=== PATIENT | female | born 1955 | race Caucasian/White ===

== ENCOUNTER 2018-10-01 17:08 | Inpatient (IN) | payer MEDICAID ==
[~2018-10-01] VITALS: Ht 154.9 cm; Wt 65.8 kg
[~2018-10-01 17:08] MED LIST: AMLO2.5T2; GLYB5TAB4; HYDR25TA; PANT40TA4; SERT25TA74 PO; VALS320T2
[2018-10-01] MEDS ORDERED: SODIUM CHLORIDE 0.9% 1,000 ML IV ONE (19:32)
[2018-10-01] MEDS ORDERED: ONDANSETRON HCL 4MG/2ML INJ IV ONE (19:45)
[2018-10-01 20:38] LABS: BASOPHILS % 0.2 % (0.0-2.0); EOSINOPHILS % 0.4 % (0.0-5.0); HEMOGLOBIN. 14.1 g/dL (12.0-16.0); LYMPHOCYTES % 16.2 % (20.0-50.0); MEAN CORPUSCULAR HEMOGLOBIN 29.6 pg (28.0-32.0); MEAN PLATELET VOLUME 9.2 fl (7.4-10.4); MONOCYTES % 4.4 % (2.0-8.0); NEUTROPHILS % 78.8 % (40.0-76.0); PLATELET 287 x1000/uL (130-400); RED BLOOD CELL COUNT 4.77 mill/uL (4.2-5.4); RED CELL DISTRIBUTION WIDTH 13.2 % (11.6-14.6)
[2018-10-01 20:43] LABS: INR 1.1; PARTIAL THROMBOPLASTIN TIME 23.4 sec (23.4-31.0); PROTHROMBIN TIME 10.8 sec (9.1-11.1)
[2018-10-01 20:44] LABS: CHLORIDE 105 mEq/L (98-107)
[2018-10-01 20:52] LABS: PHOSPHORUS 3.9 mg/dL (2.5-4.9)
[2018-10-01] MEDS ORDERED: MAGNESIUM 1 G PREMIX 100 ML IV ONE (21:15)
[2018-10-01 21:54] LABS: CLARITY URINE CLEAR (CLEAR); COLOR URINE DARK YELLOW (YELLOW); KETONES URINE TRACE (NEGATIVE); LEUKOCYTE ESTERASE URINE NEGATIVE (NEGATIVE); NITRITE URINE NEGATIVE (NEGATIVE); OCCULT BLOOD URINE NEGATIVE (NEGATIVE); PH URINE 5.5 (4.5-8.0); PROTEIN URINE 1+ (NEGATIVE); UROBILINOGEN URINE 0.2 E.U./dL (0.2-1.0)
[2018-10-02] VITALS: BP 133/61
[2018-10-02] MEDS ORDERED: DEXTROSE 50% WATER 50ML SYRINGE IV PRN (02:45)
[2018-10-02 04:00] VITALS: BP 115/79
[2018-10-02] MEDS: CEFTRIAXONE 1 G PREMIX 50 ML IV SCH (04:22)
[2018-10-02] MEDS: INSULIN LISPRO 100 UNITS/ML SUBCUT SCH ×4 (06:59→20:31)
[2018-10-02] MEDS: BLOOD SUGAR DIAGNOSTIC STRIP TEST SCH ×4 (07:31→20:31)
[2018-10-02] MEDS: PANTOPRAZOLE 40MG DR TABLET PO SCH (07:34)
[2018-10-02 08:00] VITALS: BP 130/64
[2018-10-02] MEDS ORDERED: LOSA1TAB34 PO (08:06)
[2018-10-02] MEDS: AMLODIPINE 2.5MG TABLET PO SCH (08:27)
[2018-10-02] MEDS: METFORMIN HCL 500MG TABLET PO SCH ×2 (08:27→17:34)
[2018-10-02] MEDS: ASPIRIN 325MG EC TABLET PO SCH (08:27)
[2018-10-02 10:00] LABS: HEMATOCRIT 40.2 % (36.0-48.0); MEAN CORPUSCULAR HEMOGLOBIN 30.1 pg (28.0-32.0); MEAN CORPUSCULAR VOLUME 86.8 fL (81.0-99.0); PLATELET 261 x1000/uL (130-400); RED BLOOD CELL COUNT 4.64 mill/uL (4.2-5.4); RED CELL DISTRIBUTION WIDTH 13.4 % (11.6-14.6)
[2018-10-02] MEDS ORDERED: OMEP40CA34 PO (10:35)
[2018-10-02] MEDS ORDERED: DICL75TA5 PO (10:35)
[2018-10-02] MEDS ORDERED: SITA100T11 PO (10:35)
[2018-10-02] MEDS ORDERED: RANI150C12 PO (10:35)
[2018-10-02] MEDS ORDERED: HYDR50TA55 PO (10:37)
[2018-10-02] MEDS ORDERED: AMLO5TAB88 PO (10:37)
[2018-10-02] MEDS ORDERED: NAPR500T7 PO (10:38)
[2018-10-02] MEDS ORDERED: METF-414 PO (10:38)
[2018-10-02 12:00] VITALS: BP 131/74
[2018-10-02] MEDS ORDERED: ONDANSETRON HCL 4MG/2ML INJ IV PRN (14:15)
[2018-10-02 16:00] VITALS: BP_SYST 128; BP_SYST 135; BP_SYST 141; BP_DIAS 64; BP_DIAS 67; BP_DIAS 69
[2018-10-02 16:29] LABS: CHLORIDE 103 mEq/L (98-107)
[2018-10-02 16:41] LABS: LDL CHOLESTEROL 95 mg/dL (5-100)
[2018-10-02 16:42] LABS: HDL CHOLESTEROL 60 mg/dL (40-59)
[2018-10-02 20:00] VITALS: BP 152/72
[2018-10-03] VITALS: BP 108/64
[2018-10-03 04:00] VITALS: BP 111/66
[2018-10-03] MEDS: CEFTRIAXONE 1 G PREMIX 50 ML IV SCH (04:52)
[2018-10-03] MEDS: BLOOD SUGAR DIAGNOSTIC STRIP TEST SCH ×2 (06:13→12:10)
[2018-10-03] MEDS: INSULIN LISPRO 100 UNITS/ML SUBCUT SCH ×2 (06:17→13:26)
[2018-10-03] MEDS: PANTOPRAZOLE 40MG DR TABLET PO SCH (06:24)
[2018-10-03 06:32] LABS: CHLORIDE 106 mEq/L (98-107)
[2018-10-03 06:38] LABS: BASOPHILS % 0.2 % (0.0-2.0); HEMATOCRIT. 38.6 % (36.0-48.0); HEMOGLOBIN. 13.4 g/dL (12.0-16.0); MEAN CORPUSCULAR VOLUME 86.2 fL (81.0-99.0); MONOCYTES % 5.1 % (2.0-8.0); NEUTROPHILS % 69.7 % (40.0-76.0); PLATELET 277 x1000/uL (130-400); RED BLOOD CELL COUNT 4.48 mill/uL (4.2-5.4); RED CELL DISTRIBUTION WIDTH 13.5 % (11.6-14.6)
[2018-10-03 08:00] VITALS: BP 139/66
[2018-10-03] MEDS: ASPIRIN 325MG EC TABLET PO SCH (09:21)
[2018-10-03] MEDS: METFORMIN HCL 500MG TABLET PO SCH (09:21)
[2018-10-03] MEDS: AMLODIPINE 2.5MG TABLET PO SCH (09:21)
[2018-10-03 12:48] VITALS: BP 148/70
[2018-10-03 16:41] VITALS: BP 120/72
== END 2018-10-03 18:10 | disposition home or self-care (01) | DRG 48 ==
LOC: ER 17:08 → 8WST 20:58 → EDBEDREQTM 21:03 → EDBEDREQ 21:03 → ENRESERV 23:03
PROVIDERS: ADMIT Internal Medicine; ATTEND Internal Medicine
DX: G90.8 Other disorders of autonomic nervous system (principal); E83.42 Hypomagnesemia; D72.829 Elevated white blood cell count, unspecified; E11.9 Type 2 diabetes mellitus without complications; I10 Essential (primary) hypertension; E86.0 Dehydration; R11.2 Nausea with vomiting, unspecified; Z79.899 Other long term (current) drug therapy
CPT/HCPCS: 36415; 70551; 71045; 80048; 80061; 82962; 83036; 83735; 84100; 84145; 84439; 84443; 84484; 85027; 93005; 93880; 96361; 96365; 97162; 99285; J0696; J1815; J2405; J3475; J7030

== ENCOUNTER 2020-03-22 15:57 | Inpatient (IN) | payer MEDICARE, MEDICAID ==
[~2020-03-22] VITALS: Ht 160 cm; Wt 68.9 kg
[~2020-03-22 15:57] MED LIST changes: -AMLO2.5T2; +AMLO5TAB88 PO; -HYDR25TA; +HYDR50TA55 PO; +LOSA1TAB34 PO; +METF-414 PO; +OMEP40CA12 PO; +SITA100T11 PO; -VALS320T2
[2020-03-22] MEDS ORDERED: KETOROLAC 15MG/ML VIAL IV ONE (16:30)
[2020-03-22] MEDS ORDERED: SODIUM CHLORIDE 0.9% 1000ML BAG (SEPSIS BOLUS) IV ONE (16:30)
[2020-03-22 17:01] LABS: BASOPHILS % 0.4 % (0.0-2.0); EOSINOPHILS % 0.5 % (0.0-5.0); HEMATOCRIT. 38.9 % (36.0-48.0); HEMOGLOBIN. 13.4 g/dL (12.0-16.0); LYMPHOCYTES % 16.1 % (20.0-50.0); MEAN CORPUSCULAR HEMOGLOBIN 29.4 pg (28.0-32.0); MEAN CORPUSCULAR VOLUME 85.5 fL (81.0-99.0); MEAN PLATELET VOLUME 9.9 fl (7.4-10.4); PLATELET 248 x1000/uL (130-400); RED BLOOD CELL COUNT 4.56 mill/uL (4.2-5.4); RED CELL DISTRIBUTION WIDTH 13.4 % (11.6-14.6)
[2020-03-22 17:09] LABS: CHLORIDE 103 mEq/L (98-107)
[2020-03-22 17:15] LABS: INR 1.1; PARTIAL THROMBOPLASTIN TIME 25.3 sec (23.4-31.0)
[2020-03-22] MEDS ORDERED: LEVOFLOXACIN 750MG PREMIX 150 ML IV ONE (17:45)
[2020-03-22 21:16] LABS: CLARITY URINE CLEAR (CLEAR); COLOR URINE YELLOW (YELLOW); KETONES URINE NEGATIVE (NEGATIVE); LEUKOCYTE ESTERASE URINE 1+ (NEGATIVE); NITRITE URINE NEGATIVE (NEGATIVE); OCCULT BLOOD URINE NEGATIVE (NEGATIVE); PH URINE 5.5 (4.5-8.0); PROTEIN URINE 1+ (NEGATIVE); SPECIFIC GRAVITY URINE 1.012 (1.005-1.030); UROBILINOGEN URINE 0.2 E.U./dL (0.2-1.0)
[2020-03-23] MEDS: MORPHINE SULFATE 2 MG/ML CPJ (NOT FOR IM USE) IV PRN ×2 (01:07→05:13)
[2020-03-23 09:30] VITALS: BP 124/62
[2020-03-23] MEDS ORDERED: DEXTROSE 50% WATER 50ML SYRINGE IV PRN (09:45)
[2020-03-23] MEDS ORDERED: ONDANSETRON HCL 4MG/2ML INJ IV PRN (09:45)
[2020-03-23] MEDS: SODIUM CHLORIDE 0.9% 1,000 ML IV SCH ×2 (10:22→23:17)
[2020-03-23] MEDS ORDERED: MORPHINE SULFATE 2 MG/ML CPJ (NOT FOR IM USE) IV NR (11:45)
[2020-03-23] MEDS: BLOOD SUGAR DIAGNOSTIC STRIP TEST SCH ×3 (13:30→21:00)
[2020-03-23] MEDS: INSULIN LISPRO 100 UNITS/ML SUBCUT SCH ×3 (13:41→21:00)
[2020-03-23 14:23] LABS: HEPATITIS B SURFACE ANTIGEN NEGATIVE
[2020-03-23 14:52] LABS: HEPATITIS A AB IGM NEGATIVE (NEGATIVE)
[2020-03-23] MEDS ORDERED: PIPERACILLIN/TAZ 3.375G PREMIX 50 ML IV NR (18:00)
[2020-03-23 21:30] VITALS: BP_SYST 124; BP_SYST 141; BP_DIAS 57; BP_DIAS 62
[2020-03-23] MEDS: MORPHINE SULFATE 4 MG/ML CPJ (NOT FOR IM USE) IV PRN (22:05)
[2020-03-23] MEDS: PIPERACILLIN/TAZOBACTAM 3.375 G in DEXT 5% WATER 100 ML IV SCH (23:17)
[2020-03-24] VITALS: BP 141/57
[2020-03-24] MEDS: MORPHINE SULFATE 4 MG/ML CPJ (NOT FOR IM USE) IV PRN ×3 (02:51→18:13)
[2020-03-24] MEDS ORDERED: INSU100I28 SQ (03:25)
[2020-03-24 04:00] VITALS: BP 121/56
[2020-03-24] MEDS: PIPERACILLIN/TAZOBACTAM 3.375 G in DEXT 5% WATER 100 ML IV SCH ×2 (05:27→18:15)
[2020-03-24 06:29] LABS: BASOPHILS % 0.2 % (0.0-2.0); EOSINOPHILS % 1.5 % (0.0-5.0); HEMATOCRIT. 30.8 % (36.0-48.0); HEMOGLOBIN. 10.6 g/dL (12.0-16.0); LYMPHOCYTES % 18.2 % (20.0-50.0); MEAN CORPUSCULAR HEMOGLOBIN 29.5 pg (28.0-32.0); MEAN CORPUSCULAR VOLUME 85.5 fL (81.0-99.0); MEAN PLATELET VOLUME 9.6 fl (7.4-10.4); MONOCYTES % 4.1 % (2.0-8.0); PLATELET 151 x1000/uL (130-400); RED CELL DISTRIBUTION WIDTH 13.5 % (11.6-14.6)
[2020-03-24] MEDS: BLOOD SUGAR DIAGNOSTIC STRIP TEST SCH ×4 (07:09→20:56)
[2020-03-24 07:18] LABS: CHLORIDE 109 mEq/L (98-107)
[2020-03-24 08:00] VITALS: BP 113/63
[2020-03-24] MEDS: INSULIN LISPRO 100 UNITS/ML SUBCUT SCH ×4 (09:24→21:00)
[2020-03-24 12:00] VITALS: BP 125/64
[2020-03-24 16:00] VITALS: BP 115/48
[2020-03-24 20:00] VITALS: BP 141/61
[2020-03-25] VITALS: BP 144/72
[2020-03-25] MEDS: PIPERACILLIN/TAZOBACTAM 3.375 G in DEXT 5% WATER 100 ML IV SCH ×4 (00:29→17:25)
[2020-03-25] MEDS: SODIUM CHLORIDE 0.9% 1,000 ML IV SCH (00:30)
[2020-03-25] MEDS: MORPHINE SULFATE 4 MG/ML CPJ (NOT FOR IM USE) IV PRN ×3 (00:40→20:56)
[2020-03-25 04:00] VITALS: BP 116/56
[2020-03-25 06:15] LABS: BASOPHILS % 0.1 % (0.0-2.0); EOSINOPHILS % 2.5 % (0.0-5.0); HEMATOCRIT. 33.5 % (36.0-48.0); HEMOGLOBIN. 11.3 g/dL (12.0-16.0); LYMPHOCYTES % 19.5 % (20.0-50.0); MEAN CORPUSCULAR HEMOGLOBIN 29.7 pg (28.0-32.0); MEAN CORPUSCULAR VOLUME 88.3 fL (81.0-99.0); MEAN PLATELET VOLUME 8.8 fl (7.4-10.4); MONOCYTES % 4.8 % (2.0-8.0); NEUTROPHILS % 73.1 % (40.0-76.0); PLATELET 176 x1000/uL (130-400); RED BLOOD CELL COUNT 3.79 mill/uL (4.2-5.4); RED CELL DISTRIBUTION WIDTH 13.7 % (11.6-14.6)
[2020-03-25] MEDS: BLOOD SUGAR DIAGNOSTIC STRIP TEST SCH ×4 (06:19→21:06)
[2020-03-25] MEDS: INSULIN LISPRO 100 UNITS/ML SUBCUT SCH ×4 (06:19→21:00)
[2020-03-25 06:21] LABS: CHLORIDE 106 mEq/L (98-107)
[2020-03-25 08:00] VITALS: BP 129/59
[2020-03-25 20:34] VITALS: BP 126/49
[2020-03-26] MEDS: PIPERACILLIN/TAZOBACTAM 3.375 G in DEXT 5% WATER 100 ML IV SCH ×5 (00:10→23:40)
[2020-03-26 00:13] VITALS: BP 122/43
[2020-03-26 04:28] VITALS: BP 119/45
[2020-03-26] MEDS: SODIUM CHLORIDE 0.9% 1,000 ML IV SCH ×2 (05:12→17:49)
[2020-03-26] MEDS: MORPHINE SULFATE 4 MG/ML CPJ (NOT FOR IM USE) IV PRN ×4 (05:33→21:44)
[2020-03-26] MEDS: BLOOD SUGAR DIAGNOSTIC STRIP TEST SCH ×4 (07:41→21:34)
[2020-03-26] MEDS: INSULIN LISPRO 100 UNITS/ML SUBCUT SCH ×4 (07:42→21:37)
[2020-03-26 07:48] LABS: BASOPHILS % 0.3 % (0.0-2.0); EOSINOPHILS % 1.7 % (0.0-5.0); HEMATOCRIT. 32.2 % (36.0-48.0); HEMOGLOBIN. 11.1 g/dL (12.0-16.0); LYMPHOCYTES % 15.7 % (20.0-50.0); MEAN CORPUSCULAR HEMOGLOBIN 29.2 pg (28.0-32.0); MEAN CORPUSCULAR VOLUME 84.7 fL (81.0-99.0); MEAN PLATELET VOLUME 8.9 fl (7.4-10.4); MONOCYTES % 6.3 % (2.0-8.0); PLATELET 201 x1000/uL (130-400); RED CELL DISTRIBUTION WIDTH 13.1 % (11.6-14.6)
[2020-03-26 07:59] LABS: CHLORIDE 103 mEq/L (98-107)
[2020-03-26 08:00] VITALS: BP 133/79
[2020-03-26] MEDS ORDERED: POTASSIUM CHLORIDE 20MEQ TABLET SR PO NR (11:30)
[2020-03-26 12:00] VITALS: BP 148/63
[2020-03-26 16:00] VITALS: BP 123/54
[2020-03-26 20:00] VITALS: BP 131/63
[2020-03-27] VITALS: BP 125/73
[2020-03-27 04:00] VITALS: BP 130/62
[2020-03-27] MEDS: SODIUM CHLORIDE 0.9% 1,000 ML IV SCH (05:55)
[2020-03-27] MEDS: PIPERACILLIN/TAZOBACTAM 3.375 G in DEXT 5% WATER 100 ML IV SCH ×2 (05:55→12:29)
[2020-03-27] MEDS: BLOOD SUGAR DIAGNOSTIC STRIP TEST SCH ×2 (07:45→12:48)
[2020-03-27 07:47] LABS: BASOPHILS % 0.4 % (0.0-2.0); EOSINOPHILS % 2.6 % (0.0-5.0); HEMATOCRIT. 31.6 % (36.0-48.0); LYMPHOCYTES % 18.8 % (20.0-50.0); MEAN CORPUSCULAR HEMOGLOBIN 29.2 pg (28.0-32.0); MEAN CORPUSCULAR VOLUME 84.1 fL (81.0-99.0); MEAN PLATELET VOLUME 8.6 fl (7.4-10.4); MONOCYTES % 6.4 % (2.0-8.0); NEUTROPHILS % 71.8 % (40.0-76.0); PLATELET 221 x1000/uL (130-400); RED BLOOD CELL COUNT 3.76 mill/uL (4.2-5.4); RED CELL DISTRIBUTION WIDTH 13.1 % (11.6-14.6)
[2020-03-27 08:00] VITALS: BP 143/66
[2020-03-27 08:32] LABS: CHLORIDE 104 mEq/L (98-107)
[2020-03-27] MEDS: INSULIN LISPRO 100 UNITS/ML SUBCUT SCH ×2 (09:19→12:30)
[2020-03-27] MEDS: MORPHINE SULFATE 4 MG/ML CPJ (NOT FOR IM USE) IV PRN (09:28)
[2020-03-27 12:00] VITALS: BP 146/59
[2020-03-27] MEDS ORDERED: OMEPRAZOLE 20MG CAPSULE EXTENDED RELEASE PO SCH (12:45)
[2020-03-27] MEDS ORDERED: ACETAMINOPHEN WITH CODEINE 300/30MG TABLET PO NR (15:45)
[2020-03-27 16:00] VITALS: BP 118/61
[2020-03-27 16:43] VITALS: BP 118/61
== END 2020-03-27 17:45 | disposition home or self-care (01) | DRG 871 ==
LOC: ER 15:57 → 6EST 19:24 → EDBEDREQ 19:31 → EDBEDREQSVC 03-23 09:58 → ENRESERV 03-23 20:43
PROVIDERS: ADMIT Internal Medicine; ATTEND Internal Medicine
DX: A41.9 Sepsis, unspecified organism (principal); R65.21 Severe sepsis with septic shock; K85.90 Acute pancreatitis without necrosis or infection, unspecified; N39.0 Urinary tract infection, site not specified; E11.9 Type 2 diabetes mellitus without complications; K82.8 Other specified diseases of gallbladder; I10 Essential (primary) hypertension; K76.9 Liver disease, unspecified; K52.9 Noninfective gastroenteritis and colitis, unspecified; Z98.51 Tubal ligation status
CPT/HCPCS: 36415; 71045; 74176; 74181; 76700; 78227; 80048; 80053; 80076; 81003; 82105; 82248; 82962; 83605; 84145; 84484; 85025; 86301; 86705; 86709; 86803; 87340; 93005; 99291; A9537; J1815; J1885; J1956; J2270; J2405; J2543; J7030; J7060

== ENCOUNTER 2022-08-09 02:38 | Inpatient (IN) | payer MEDICARE, MEDICAID ==
[~2022-08-09] VITALS: Ht 160 cm; Wt 64.4 kg
[~2022-08-09 02:38] MED LIST changes: +INSU100I28 SQ; -OMEP40CA12 PO; +OMEP40CA20 PO; -PANT40TA4
[2022-08-09] MEDS ORDERED: ONDANSETRON HCL 4MG/2ML INJ IV STA (03:18)
[2022-08-09] MEDS ORDERED: MORPHINE SULFATE 4 MG/ML CPJ (NOT FOR IM USE) IV STA (03:18)
[2022-08-09] MEDS ORDERED: SODIUM CHLORIDE 0.9% 1,000 ML IV ONE (03:30)
[2022-08-09 03:55] LABS: BASOPHILS % 0.4 % (0.0-2.0); EOSINOPHILS % 0.9 % (0.0-5.0); HEMATOCRIT. 38.8 % (36.0-48.0); HEMOGLOBIN. 13.1 g/dL (12.0-16.0); LYMPHOCYTES % 27.9 % (20.0-50.0); MEAN CORPUSCULAR HEMOGLOBIN 28.6 pg (28.0-32.0); MEAN CORPUSCULAR VOLUME 84.8 fL (81.0-99.0); MEAN PLATELET VOLUME 9.8 fl (7.4-10.4); MONOCYTES % 5.6 % (2.0-8.0); NEUTROPHILS % 65.2 % (40.0-76.0); PLATELET 272 x1000/uL (130-400); RED BLOOD CELL COUNT 4.57 mill/uL (4.2-5.4); RED CELL DISTRIBUTION WIDTH 13.9 % (11.6-14.6)
[2022-08-09 04:15] LABS: CHLORIDE 106 mEq/L (98-107)
[2022-08-09 04:23] LABS: ETHANOL BLOOD < 10 mg/dL
[2022-08-09] MEDS ORDERED: VANCOMYCIN 1G PREMIX 200 ML IV NR (04:45)
[2022-08-09] MEDS ORDERED: PIPERACILLIN/TAZOBACTAM 3.375GM/50ML PREMIX IV ONE (04:45)
[2022-08-09] MEDS ORDERED: PIPERACILLIN/TAZ 3.375G PREMIX 50 ML IV NR (05:00)
[2022-08-09 06:46] LABS: CLARITY URINE CLEAR (CLEAR); COLOR URINE YELLOW (YELLOW); KETONES URINE NEGATIVE (NEGATIVE); LEUKOCYTE ESTERASE URINE TRACE (NEGATIVE); NITRITE URINE NEGATIVE (NEGATIVE); OCCULT BLOOD URINE NEGATIVE (NEGATIVE); PH URINE 5.5 (4.5-8.0); PROTEIN URINE 1+ (NEGATIVE); SPECIFIC GRAVITY URINE 1.015 (1.005-1.030)
[2022-08-09 07:08] LABS: *AMPHETAMINES SCREEN URINE NEGATIVE (NEGATIVE); *BARBITURATES SCREEN URINE NEGATIVE (NEGATIVE); *BENZODIAZEPINES SCREEN URINE NEGATIVE (NEGATIVE); *COCAINE SCREEN URINE NEGATIVE (NEGATIVE); CANNABINOID URINE SCREEN NEGATIVE (NEGATIVE); METHADONE URINE SCREEN NEGATIVE (NEGATIVE); OPIATES URINE SCREEN PRESUMTIVE POSITIVE (NEGATIVE); PHENCYCLIDINE URINE SCREEN NEGATIVE (NEGATIVE)
[2022-08-09] MEDS ORDERED: DEXTROSE 50% WATER 50ML SYRINGE IV PRN (09:15)
[2022-08-09] MEDS ORDERED: POTASSIUM CHLORIDE INJ 40 MEQ in DEXT 5% WATER 250 ML IV ONE (09:15)
[2022-08-09] MEDS: MORPHINE SULFATE 2 MG/ML CPJ (NOT FOR IM USE) IV PRN ×3 (09:21→21:17)
[2022-08-09] MEDS: ONDANSETRON HCL 4MG/2ML INJ IV PRN (09:21)
[2022-08-09] MEDS ORDERED: NALOXONE HCL 0.4MG/ML VIAL IV PRN (11:30)
[2022-08-09 11:31] VITALS: BP 168/62
[2022-08-09] MEDS: DEXT 5%/0.45% NACL 1000ML 1,000 ML IV SCH ×2 (11:51→19:15)
[2022-08-09] MEDS: HYDROCODONE/ACETAMINOPHEN 5/325MG TABLET PO PRN (11:51)
[2022-08-09] MEDS: KCL 20MEQ/100ML PREMIX 100 ML IV SCH ×2 (11:52→12:55)
[2022-08-09 12:00] VITALS: BP 166/62
[2022-08-09] MEDS: BLOOD SUGAR DIAGNOSTIC STRIP TEST SCH ×3 (12:10→21:14)
[2022-08-09] MEDS: INSULIN LISPRO 100 UNITS/ML SUBCUT SCH ×3 (12:40→21:00)
[2022-08-09] MEDS: GABAPENTIN 300MG CAPSULE PO SCH ×2 (14:17→21:14)
[2022-08-09] MEDS: AMLODIPINE 10MG TABLET PO SCH (14:17)
[2022-08-09 16:00] VITALS: BP 145/61
[2022-08-09] MEDS: PIPERACILLIN/TAZOBACTAM 3.375 G in DEXTROSE 5% WATER 50 ML IV SCH ×2 (16:30→23:06)
[2022-08-09 20:00] VITALS: BP 140/76
[2022-08-10] VITALS: BP 138/80
[2022-08-10 04:00] VITALS: BP 136/68
[2022-08-10 06:32] LABS: BASOPHILS % 0.1 % (0.0-2.0); EOSINOPHILS % 0.1 % (0.0-5.0); HEMATOCRIT. 37.6 % (36.0-48.0); HEMOGLOBIN. 12.9 g/dL (12.0-16.0); LYMPHOCYTES % 13.3 % (20.0-50.0); MEAN CORPUSCULAR HEMOGLOBIN 28.9 pg (28.0-32.0); MEAN CORPUSCULAR VOLUME 84.3 fL (81.0-99.0); MEAN PLATELET VOLUME 9.5 fl (7.4-10.4); MONOCYTES % 5.6 % (2.0-8.0); NEUTROPHILS % 80.9 % (40.0-76.0); PLATELET 237 x1000/uL (130-400); RED BLOOD CELL COUNT 4.47 mill/uL (4.2-5.4); RED CELL DISTRIBUTION WIDTH 14.3 % (11.6-14.6)
[2022-08-10] MEDS: PIPERACILLIN/TAZOBACTAM 3.375 G in DEXTROSE 5% WATER 50 ML IV SCH ×3 (06:46→21:13)
[2022-08-10] MEDS: GABAPENTIN 300MG CAPSULE PO SCH ×3 (06:46→21:11)
[2022-08-10] MEDS: DEXT 5%/0.45% NACL 1000ML 1,000 ML IV SCH (06:47)
[2022-08-10 06:54] LABS: AMYLASE 667 IU/L (25-115); CHLORIDE 104 mEq/L (98-107); GAMMA GLUTAMYL TRANSPEPTIDASE 245 IU/L (7-32)
[2022-08-10] MEDS: INSULIN LISPRO 100 UNITS/ML SUBCUT SCH ×4 (06:55→21:00)
[2022-08-10] MEDS: BLOOD SUGAR DIAGNOSTIC STRIP TEST SCH ×4 (06:56→21:11)
[2022-08-10 07:55] VITALS: BP 127/61
[2022-08-10] MEDS: AMLODIPINE 10MG TABLET PO SCH (08:12)
[2022-08-10] MEDS: SODIUM CHLORIDE 0.9% 1,000 ML IV SCH ×2 (08:12→16:36)
[2022-08-10] MEDS: MORPHINE SULFATE 2 MG/ML CPJ (NOT FOR IM USE) IV PRN ×4 (08:21→21:11)
[2022-08-10 12:00] VITALS: BP 139/60
[2022-08-10 15:35] VITALS: BP 140/61
[2022-08-10] MEDS: ONDANSETRON HCL 4MG/2ML INJ IV PRN (18:29)
[2022-08-10 20:00] VITALS: BP 153/66
[2022-08-11] VITALS: BP 155/72
[2022-08-11] MEDS: MORPHINE SULFATE 2 MG/ML CPJ (NOT FOR IM USE) IV PRN ×5 (02:15→21:24)
[2022-08-11] MEDS: SODIUM CHLORIDE 0.9% 1,000 ML IV SCH ×2 (02:16→11:46)
[2022-08-11 04:00] VITALS: BP 150/70
[2022-08-11] MEDS: PIPERACILLIN/TAZOBACTAM 3.375 G in DEXTROSE 5% WATER 50 ML IV SCH ×3 (05:56→21:24)
[2022-08-11] MEDS: GABAPENTIN 300MG CAPSULE PO SCH ×3 (05:56→21:26)
[2022-08-11] MEDS: BLOOD SUGAR DIAGNOSTIC STRIP TEST SCH ×4 (06:14→20:52)
[2022-08-11] MEDS: INSULIN LISPRO 100 UNITS/ML SUBCUT SCH ×4 (06:14→21:26)
[2022-08-11 07:07] LABS: EOSINOPHILS % 0.1 % (0.0-5.0); HEMATOCRIT. 35.8 % (36.0-48.0); HEMOGLOBIN. 12.1 g/dL (12.0-16.0); LYMPHOCYTES % 13.4 % (20.0-50.0); MEAN CORPUSCULAR HEMOGLOBIN 28.6 pg (28.0-32.0); MEAN CORPUSCULAR VOLUME 84.3 fL (81.0-99.0); MEAN PLATELET VOLUME 9.4 fl (7.4-10.4); MONOCYTES % 5.1 % (2.0-8.0); NEUTROPHILS % 81.4 % (40.0-76.0); PLATELET 198 x1000/uL (130-400); RED BLOOD CELL COUNT 4.25 mill/uL (4.2-5.4); RED CELL DISTRIBUTION WIDTH 14.1 % (11.6-14.6)
[2022-08-11 07:30] VITALS: BP 147/69
[2022-08-11] MEDS: HYDROCODONE/ACETAMINOPHEN 5/325MG TABLET PO PRN ×4 (08:18→23:50)
[2022-08-11] MEDS: AMLODIPINE 10MG TABLET PO SCH (08:18)
[2022-08-11 09:01] LABS: CHLORIDE 104 mEq/L (98-107)
[2022-08-11 09:10] LABS: AMYLASE 182 IU/L (25-115)
[2022-08-11] MEDS ORDERED: POTASSIUM CHLORIDE 20MEQ TABLET SR PO NR (09:30)
[2022-08-11 12:00] VITALS: BP 150/76
[2022-08-11 16:00] VITALS: BP 143/65
[2022-08-11] MEDS: ONDANSETRON HCL 4MG/2ML INJ IV PRN (16:34)
[2022-08-11 19:57] VITALS: BP 156/70
[2022-08-12] VITALS: BP 144/65
[2022-08-12 03:37] VITALS: BP 156/60
[2022-08-12] MEDS: BLOOD SUGAR DIAGNOSTIC STRIP TEST SCH ×4 (05:33→21:03)
[2022-08-12] MEDS: HYDROCODONE/ACETAMINOPHEN 5/325MG TABLET PO PRN ×3 (05:47→21:02)
[2022-08-12] MEDS: INSULIN LISPRO 100 UNITS/ML SUBCUT SCH ×4 (05:48→21:03)
[2022-08-12] MEDS: GABAPENTIN 300MG CAPSULE PO SCH ×3 (05:49→21:01)
[2022-08-12] MEDS: PIPERACILLIN/TAZOBACTAM 3.375 G in DEXTROSE 5% WATER 50 ML IV SCH ×3 (05:50→21:01)
[2022-08-12 07:18] LABS: HEMATOCRIT. 35.1 % (36.0-48.0); MEAN CORPUSCULAR HEMOGLOBIN 29.1 pg (28.0-32.0); MEAN PLATELET VOLUME 9.1 fl (7.4-10.4); PLATELET 212 x1000/uL (130-400); RED BLOOD CELL COUNT 4.12 mill/uL (4.2-5.4); RED CELL DISTRIBUTION WIDTH 13.9 % (11.6-14.6)
[2022-08-12 08:00] VITALS: BP 131/53
[2022-08-12 08:27] LABS: CHLORIDE 99 mEq/L (98-107)
[2022-08-12 08:43] LABS: AMYLASE 63 IU/L (25-115)
[2022-08-12] MEDS: SODIUM CHLORIDE 0.9% 1,000 ML IV SCH ×3 (09:41→10:00)
[2022-08-12] MEDS: AMLODIPINE 10MG TABLET PO SCH (09:42)
[2022-08-12 12:00] VITALS: BP 138/60
[2022-08-12] MEDS: PANTOPRAZOLE SODIUM 40 MG/VIAL IV SCH (12:48)
[2022-08-12] MEDS: ONDANSETRON HCL 4MG/2ML INJ IV PRN (12:56)
[2022-08-12 14:08] LABS: PLATELET ESTIMATE NORMAL
[2022-08-12] MEDS ORDERED: POTASSIUM CHLORIDE 20MEQ TABLET SR PO NR (15:00)
[2022-08-12 16:00] VITALS: BP 128/54
[2022-08-12 20:00] VITALS: BP 159/66
[2022-08-13] VITALS: BP 156/63
[2022-08-13] MEDS: HYDROCODONE/ACETAMINOPHEN 5/325MG TABLET PO PRN ×3 (01:55→18:46)
[2022-08-13 04:00] VITALS: BP 145/60
[2022-08-13] MEDS: BLOOD SUGAR DIAGNOSTIC STRIP TEST SCH ×4 (05:02→21:00)
[2022-08-13] MEDS: PIPERACILLIN/TAZOBACTAM 3.375 G in DEXTROSE 5% WATER 50 ML IV SCH ×3 (05:02→21:00)
[2022-08-13] MEDS: GABAPENTIN 300MG CAPSULE PO SCH ×3 (05:02→21:00)
[2022-08-13] MEDS: INSULIN LISPRO 100 UNITS/ML SUBCUT SCH ×4 (05:12→20:59)
[2022-08-13] MEDS: SODIUM CHLORIDE 0.9% 1,000 ML IV SCH ×2 (06:00→16:16)
[2022-08-13 06:41] LABS: BASOPHILS % 0.4 % (0.0-2.0); CHLORIDE 101 mEq/L (98-107); EOSINOPHILS % 1.5 % (0.0-5.0); HEMATOCRIT. 34.3 % (36.0-48.0); HEMOGLOBIN. 11.7 g/dL (12.0-16.0); LYMPHOCYTES % 18.9 % (20.0-50.0); MEAN CORPUSCULAR HEMOGLOBIN 28.4 pg (28.0-32.0); MEAN CORPUSCULAR VOLUME 83.5 fL (81.0-99.0); MEAN PLATELET VOLUME 8.9 fl (7.4-10.4); MONOCYTES % 5.6 % (2.0-8.0); NEUTROPHILS % 73.6 % (40.0-76.0); PLATELET 258 x1000/uL (130-400); RED BLOOD CELL COUNT 4.11 mill/uL (4.2-5.4); RED CELL DISTRIBUTION WIDTH 13.7 % (11.6-14.6)
[2022-08-13 06:57] LABS: AMYLASE 45 IU/L (25-115)
[2022-08-13 08:00] VITALS: BP 138/62
[2022-08-13] MEDS ORDERED: POTASSIUM CHLORIDE 20MEQ TABLET SR PO NR (08:00)
[2022-08-13] MEDS: PANTOPRAZOLE SODIUM 40 MG/VIAL IV SCH (10:31)
[2022-08-13] MEDS: AMLODIPINE 10MG TABLET PO SCH (10:31)
[2022-08-13 12:00] VITALS: BP 131/58
[2022-08-13 16:00] VITALS: BP 122/65
[2022-08-13] MEDS: ONDANSETRON HCL 4MG/2ML INJ IV PRN (18:41)
[2022-08-13 20:00] VITALS: BP 136/61
[2022-08-14] VITALS: BP 130/60
[2022-08-14] MEDS: HYDROCODONE/ACETAMINOPHEN 5/325MG TABLET PO PRN ×3 (01:13→09:27)
[2022-08-14 04:00] VITALS: BP 125/60
[2022-08-14] MEDS: PIPERACILLIN/TAZOBACTAM 3.375 G in DEXTROSE 5% WATER 50 ML IV SCH (05:34)
[2022-08-14] MEDS: GABAPENTIN 300MG CAPSULE PO SCH ×3 (05:34→21:03)
[2022-08-14] MEDS: BLOOD SUGAR DIAGNOSTIC STRIP TEST SCH ×4 (05:35→20:35)
[2022-08-14] MEDS: INSULIN LISPRO 100 UNITS/ML SUBCUT SCH ×4 (05:35→20:35)
[2022-08-14] MEDS: SODIUM CHLORIDE 0.9% 1,000 ML IV SCH ×2 (06:09→12:08)
[2022-08-14 08:00] VITALS: BP 122/62
[2022-08-14] MEDS: FAMOTIDINE 20MG/2ML VIAL IV SCH (08:16)
[2022-08-14] MEDS: AMLODIPINE 10MG TABLET PO SCH (08:16)
[2022-08-14 11:47] VITALS: BP 123/54
[2022-08-14 13:04] LABS: BASOPHILS % 0.2 % (0.0-2.0); HEMATOCRIT. 33.1 % (36.0-48.0); HEMOGLOBIN. 11.4 g/dL (12.0-16.0); LYMPHOCYTES % 18.5 % (20.0-50.0); MEAN CORPUSCULAR HEMOGLOBIN 28.8 pg (28.0-32.0); MEAN CORPUSCULAR VOLUME 83.8 fL (81.0-99.0); MEAN PLATELET VOLUME 8.4 fl (7.4-10.4); MONOCYTES % 7.4 % (2.0-8.0); NEUTROPHILS % 70.9 % (40.0-76.0); PLATELET 269 x1000/uL (130-400); RED BLOOD CELL COUNT 3.96 mill/uL (4.2-5.4); RED CELL DISTRIBUTION WIDTH 13.8 % (11.6-14.6)
[2022-08-14 13:13] LABS: CHLORIDE 102 mEq/L (98-107)
[2022-08-14] MEDS: ACETAMINOPHEN 325MG TABLET PO PRN (13:28)
[2022-08-14] MEDS ORDERED: POTASSIUM CHLORIDE 20MEQ TABLET SR PO SCH (13:30)
[2022-08-14] MEDS: ONDANSETRON HCL 4MG/2ML INJ IV PRN (13:45)
[2022-08-14 15:30] VITALS: BP 122/67
[2022-08-14] MEDS ORDERED: NALOXONE HCL 0.4MG/ML VIAL IV PRN (19:30)
[2022-08-14 20:00] VITALS: BP 136/52
[2022-08-14] MEDS: HYDROCODONE/ACETAMINOPHEN 10/325MG TABLET PO PRN (20:37)
[2022-08-15] VITALS (7 sets, daily range): BP systolic 110–139; BP diastolic 52–65
[2022-08-15] MEDS: GABAPENTIN 300MG CAPSULE PO SCH ×3 (05:01→21:04)
[2022-08-15] MEDS: HYDROCODONE/ACETAMINOPHEN 10/325MG TABLET PO PRN ×3 (05:02→20:42)
[2022-08-15] MEDS: SODIUM CHLORIDE 0.9% 1,000 ML IV SCH ×2 (05:11→16:15)
[2022-08-15] MEDS: BLOOD SUGAR DIAGNOSTIC STRIP TEST SCH ×4 (05:31→21:04)
[2022-08-15] MEDS: INSULIN LISPRO 100 UNITS/ML SUBCUT SCH ×4 (05:31→21:00)
[2022-08-15 08:26] LABS: CHLORIDE 101 mEq/L (98-107)
[2022-08-15] MEDS: FAMOTIDINE 20MG/2ML VIAL IV SCH (09:40)
[2022-08-15] MEDS: AMLODIPINE 10MG TABLET PO SCH (09:40)
[2022-08-15] MEDS ORDERED: BISACODYL 10MG SUPP PR NR (15:30)
[2022-08-15 15:47] LABS: BASOPHILS % 0.3 % (0.0-2.0); EOSINOPHILS % 2.5 % (0.0-5.0); HEMATOCRIT. 34.5 % (36.0-48.0); HEMOGLOBIN. 11.9 g/dL (12.0-16.0); LYMPHOCYTES % 16.2 % (20.0-50.0); MEAN CORPUSCULAR HEMOGLOBIN 29.1 pg (28.0-32.0); MEAN CORPUSCULAR VOLUME 84.5 fL (81.0-99.0); MEAN PLATELET VOLUME 8.1 fl (7.4-10.4); MONOCYTES % 8.5 % (2.0-8.0); NEUTROPHILS % 72.5 % (40.0-76.0); PLATELET 269 x1000/uL (130-400); RED BLOOD CELL COUNT 4.09 mill/uL (4.2-5.4)
[2022-08-15] MEDS: METOCLOPRAMIDE HCL 10MG/2ML VIAL IV SCH ×3 (16:15→23:55)
[2022-08-15] MEDS: ACETAMINOPHEN 325MG TABLET PO PRN (23:55)
[2022-08-16 04:00] VITALS: BP 118/60
[2022-08-16 04:15] LABS: VITAMIN B12 SERUM 310 pg/mL (211-911)
[2022-08-16] MEDS: INSULIN LISPRO 100 UNITS/ML SUBCUT SCH ×2 (05:39→13:14)
[2022-08-16] MEDS: BLOOD SUGAR DIAGNOSTIC STRIP TEST SCH ×2 (05:39→13:07)
[2022-08-16] MEDS: HYDROCODONE/ACETAMINOPHEN 10/325MG TABLET PO PRN (05:52)
[2022-08-16] MEDS: GABAPENTIN 300MG CAPSULE PO SCH ×2 (05:52→13:16)
[2022-08-16] MEDS: METOCLOPRAMIDE HCL 10MG/2ML VIAL IV SCH ×2 (05:52→13:13)
[2022-08-16] MEDS: SODIUM CHLORIDE 0.9% 1,000 ML IV SCH (05:52)
[2022-08-16 07:03] LABS: BASOPHILS % 0.5 % (0.0-2.0); EOSINOPHILS % 3.2 % (0.0-5.0); HEMATOCRIT. 32.5 % (36.0-48.0); HEMOGLOBIN. 11.3 g/dL (12.0-16.0); MEAN CORPUSCULAR HEMOGLOBIN 28.8 pg (28.0-32.0); MEAN CORPUSCULAR VOLUME 83.2 fL (81.0-99.0); MEAN PLATELET VOLUME 8.4 fl (7.4-10.4); NEUTROPHILS % 63.3 % (40.0-76.0); PLATELET 286 x1000/uL (130-400); RED BLOOD CELL COUNT 3.91 mill/uL (4.2-5.4); RED CELL DISTRIBUTION WIDTH 14.1 % (11.6-14.6)
[2022-08-16 08:00] VITALS: BP 121/62
[2022-08-16] MEDS: FAMOTIDINE 20MG/2ML VIAL IV SCH (08:21)
[2022-08-16] MEDS: AMLODIPINE 10MG TABLET PO SCH (08:21)
[2022-08-16 10:16] LABS: CHLORIDE 102 mEq/L (98-107)
[2022-08-16] MEDS ORDERED: POTASSIUM CHLORIDE 10MEQ TABLET SR PO NR (10:30)
[2022-08-16 11:46] VITALS: BP 121/62
[2022-08-16 12:00] VITALS: BP 122/45
== END 2022-08-16 15:40 | disposition home or self-care (01) | DRG 438 ==
LOC: ER 02:38 → 8WST 05:10 → EDBEDREQTM 05:12 → EDBEDREQ 05:12
PROVIDERS: ADMIT Internal Medicine; ATTEND Internal Medicine
DX: K85.90 Acute pancreatitis without necrosis or infection, unspecified (principal); R65.11 Systemic inflammatory response syndrome (SIRS) of non-infectious origin with acute organ dysfunction; E87.20 Acidosis, unspecified; E11.9 Type 2 diabetes mellitus without complications; E87.6 Hypokalemia; K21.9 Gastro-esophageal reflux disease without esophagitis; I11.9 Hypertensive heart disease without heart failure; K76.0 Fatty (change of) liver, not elsewhere classified; G90.8 Other disorders of autonomic nervous system; R74.01 Elevation of levels of liver transaminase levels; E80.6 Other disorders of bilirubin metabolism; D72.829 Elevated white blood cell count, unspecified
CPT/HCPCS: 36415; 71045; 72131; 74018; 74176; 76705; 80048; 80053; 80076; 80305; 80320; 81003; 82105; 82140; 82150; 82607; 82962; 82977; 83605; 84145; 84478; 84484; 85025; 86301; 93005; 93306; 99291; C1893; C9113; J1815; J2270; J2405; J2543; J2765; J3370; J3480; J3490; J7030; J7060; G0480

== ENCOUNTER 2024-11-08 14:30 | Emergency (ER) | payer MEDICARE, MEDICAID ==
[~2024-11-08] VITALS: Ht 154.9 cm; Wt 68.0 kg
[2024-11-08 14:37] VITALS: BP 146/58; TEMP 98.5; O2SAT 99
[2024-11-08 14:39] VITALS: PULSE 72; RESP 14; O2SAT 98
[2024-11-08 16:10] LABS: POTASSIUM 3.9 mEq/L (3.5-5.1)
[2024-11-08 16:11] LABS: CALCIUM 9.9 mg/dL (8.7-10.4)
[2024-11-08 16:12] LABS: BASOPHILS % 0.2 % (0.0-2.0); EOSINOPHILS % 0.2 % (0.0-5.0); HEMATOCRIT. 37.6 % (36.0-48.0); HEMOGLOBIN. 12.7 g/dL (12.0-16.0); LYMPHOCYTES % 13.3 % (20.0-50.0); MEAN CORPUSCULAR HEMOGLOBIN 29.1 pg (28.0-32.0); MEAN CORPUSCULAR HGB CONC 33.8 g/dL (31.0-37.0); MEAN PLATELET VOLUME 10.2 fl (7.4-10.4); MONOCYTES % 3.6 % (2.0-8.0); NEUTROPHILS % 82.7 % (40.0-76.0); PLATELET 241 x1000/uL (130-400); RED BLOOD CELL COUNT 4.37 mill/uL (4.2-5.4); RED CELL DISTRIBUTION WIDTH 14.4 % (11.6-14.6); WHITE BLOOD COUNT 16.4 x1000/uL (4.5-11.0)
[2024-11-08 19:42] LABS: ALANINE AMINOTRANSFERASE 41 IU/L (10-49); ALBUMIN 4.6 g/dL (3.2-4.8); ASPARTATE AMINOTRANSFERASE 55 IU/L (<34); BILIRUBIN DIRECT 0.4 mg/dL (<=3.0); BILIRUBIN TOTAL 1.1 mg/dL (0.1-1.0); PROTEIN TOTAL 7.4 g/dL (6.0-8.3)
[2024-11-08] MEDS ORDERED: CIPR500T5 MT (20:51)
== END 2024-11-08 21:14 | disposition home or self-care (01) ==
LOC: ER 14:44
DX: K52.9 Noninfective gastroenteritis and colitis, unspecified (principal); K29.70 Gastritis, unspecified, without bleeding; E11.9 Type 2 diabetes mellitus without complications; I10 Essential (primary) hypertension; Z79.899 Other long term (current) drug therapy; Z98.51 Tubal ligation status
CPT/HCPCS: 36415; 74176; 80048; 80076; 85025; 99284